=== PATIENT | female | born 1955 | race Two or more races ===

== ENCOUNTER 2017-12-19 20:07 | Emergency (ER) | payer MEDICAID ==
[~2017-12-19] VITALS: Ht 160 cm; Wt 64.0 kg
[2017-12-19] MEDS ORDERED: HYDROCODONE/ACETAMINOPHEN 5/325MG TABLET PO ONE (23:00)
[2017-12-19] MEDS ORDERED: TETANUS, DIPHTHERIA, PERTUSSIS VAC/PF 0.5ML (>7YR OLD) IM ONE (23:00)
[2017-12-19 23:23] VITALS: BP 144/80
== END 2017-12-20 00:57 | disposition home or self-care (01) ==
LOC: EDSEX 20:07 → ER 20:07
DX: S00.03XA Contusion of scalp, initial encounter (principal); W31.89XA Contact with other specified machinery, initial encounter; Y93.89 Activity, other specified; Y92.89 Other specified places as the place of occurrence of the external cause; Y99.0 Civilian activity done for income or pay
CPT/HCPCS: 70450; 90471; 90715; 99284